=== PATIENT | male | born 1965 | race Caucasian/White ===

== ENCOUNTER → 2016-06-26 | Outpatient (CLI) | payer BC ==
[2016-06-26 15:14] LABS: CHLORIDE,CL 104 mmol/L (98-110); SODIUM,NA 138 mmol/L (136-146)
== END ==
LOC: MW.CHIM 14:36
PROVIDERS: ATTEND Internal Medicine
DX: E11.9 Type 2 diabetes mellitus without complications (principal); I10 Essential (primary) hypertension; E78.00 Pure hypercholesterolemia, unspecified
CPT/HCPCS: 36415; 80053; 82150; 83036

== ENCOUNTER 2018-07-14 08:46 | Day surgery (SDC) | payer BC ==
[~2018-07-14 08:46] MED LIST: Midazolam 1 MG/ML 2 ML SDV ONE; Propofol 200 MG/20 ML SDV ONE; fentaNYL 100 MCG/2 ML SDV ONE
[2018-07-14] MEDS: Lactated Ringers 1,000 ML IV SCH ×2 (09:20→11:01)
--- NOTE | 2018-07-14 09:35 | PCM.PREANE ---
Preanesthetic Assessment - Anesthesia/Transfusion/Family Hx Anesthesia History: Prior Anesthesia Without Reaction Family History of Anesthesia Reaction: No Transfusion History: No Prior Transfusion(s) - Review of Systems General: No Symptoms Pulmonary: No Symptoms Cardiovascular: No Symptoms Neurological: No Symptoms Other: Reports: None - Physical Assessment NPO Status Date: 07/13/18 Height: 5 ft 7 in Weight: 71.668 kg ASA Class: 2 Mental Status: Alert & Oriented x3 Airway Class: Mallampati = 1 Dentition: Reports: Missing Tooth/Teeth ROM/Head Extension: Full Lungs: Clear to Auscultation, Normal Respiratory Effort Cardiovascular: Regular Rate, Regular Rhythm - Lab Values: Laboratory Last Values POC Glucose 130 mg/dL (60-110) H 07/14/18 09:26 - Allergies Allergies/Adverse Reactions: Allergies Allergy/AdvReac Type Severity Reaction Status Date / Time No Known Allergies Allergy Verified 07/09/18 10:31 - Blood Blood Available: No - Anesthesia Plan Pre-Op Medication Ordered: None - Acknowledgements Anesthesia Type Planned: General Anesthesia Pt an Appropriate Candidate for the Planned Anesthesia: Yes Alternatives and Risks of Anesthesia Discussed w Pt/Guardian: Yes Pt/Guardian Understands and Agrees with Anesthesia Plan: Yes Additional Comments: PMH: gerd. 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, partial right nephrectomy for removal of benign mass Musculoskeletal History: Reports: Other (See Below) Other Musculoskeletal History: tawnya shoulder pain Neurological History: Reports: None Psychiatric History: Reports: None Endocrine/Metabolic History: Reports: Diabetes, Type II Hematologic History: Reports: None Immunologic History: Reports: None Oncologic (Cancer) History: Reports: None Dermatologic History: Reports: None - Past Surgical History Head Surgeries/Procedures: Reports: None HEENT Surgical History: Reports: Naso-Sinus Surgery GI Surgical History: Reports: EGD, Hernia, Inguinal Male Surgical History: Reports: Other (See Below) Other Male Surgeries/Procedures: partial right nephrectomy for excision of benign mass Endocrine Surgical History: Reports: None Neurological Surgical History: Reports: None Oncologic Surgical History: Reports: None Dermatological Surgical History: Reports: None - SUBSTANCE USE Smoking Status *Q: Current Every Day Smoker Tobacco Use Within Last Twelve Months: Cigarettes Recreational Drug Use History: No - HOME MEDS Home Medications: Home Meds Cyclobenzaprine HCl 10 mg PO BEDTIME PRN 07/09/18 [History] Empagliflozin [Jardiance] 25 mg PO DAILY 07/09/18 [History] Liraglutide [Victoza] 1.8 mg SUBCUT DAILY 07/09/18 [History] Lisinopril 10 mg PO DAILY 07/09/18 [History] Multivits-Minerals/FA/Lycopene [One-A-Day Men's Tablet] 1 tab PO DAILY 07/09/18 [History] Omeprazole 40 mg PO BID 07/09/18 [History] Simvastatin [Zocor] 40 mg PO DAILY 07/09/18 [History] Vitamin B Complex/Folic Acid [Super B Maxi Complex Caplet] 1 tab PO DAILY [History] metFORMIN HCl [Metformin HCl] 1,000 mg PO BIDMEALS 07/09/18 [History] traMADol HCl [Tramadol HCl] 50 mg PO ASDIRECTED PRN 07/09/18 [History] - CURRENT (IN HOUSE) MEDS Current Meds: Current Medications Lactated Ringer's (Ringers, Lactated) 1,000 mls @ 125 mls/hr IV ASDIRECTED LUCINA Discontinued Medications Fentanyl (Sublimaze) Confirm Administered Dose 100 mcg .ROUTE .STK-MED ONE Stop: 07/14/18 07:35 Midazolam HCl (Versed 1 Mg/Ml) Confirm Administered Dose 2 mg .ROUTE .STK-MED ONE Stop: 07/14/18 07:35 Propofol (Diprivan 20 Ml) Confirm Administered Dose 200 mg .ROUTE .STK-MED ONE Stop: 07/14/18 07:35
--- NOTE | 2018-07-14 12:52 | PCM.OPNOTE ---
- General Post-Op/Procedure Note Date of Surgery/Procedure: 07/14/18 Operative Procedure(s): Esophagogastroduodenoscopy with gastric and esophageal biopsies Pre Op Diagnosis: Progressive heartburn. Spicy food intolerance. Post-Op Diagnosis: Chronic gastritis. Distal esophagitis. Anesthesia Technique: MAC (ASA II) Primary Surgeon: Jame Chavez Free Text/Narrative:: DICTATION 129770 CPT CODE 96862
[2018-07-14] MEDS ORDERED: Lactated Ringers 1,000 ML IV SCH (13:00)
--- NOTE | 2018-07-14 13:21 | PCM.POSTAN ---
POST ANESTHESIA ASSESSMENT - MENTAL STATUS Mental Status: Alert, Oriented - RESPIRATORY Respiratory Status: Respiratory Rate WNL, Airway Patent, O2 Saturation Stable - CARDIOVASCULAR CV Status: Pulse Rate WNL, Blood Pressure Stable - GASTROINTESTINAL GI Status: No Symptoms - POST OP HYDRATION Hydration Status: Adequate & Stable
--- NOTE | 2018-07-14 13:21 | PCM48HPAN ---
Post Anesthesia Note - EVALUATION WITHIN 48HRS OF ANESTHETIC Vital Signs in Normal Range: Yes Patient Participated in Evaluation: Yes Respiratory Function Stable: Yes Airway Patent: Yes Cardiovascular Function Stable: Yes Hydration Status Stable: Yes Pain Control Satisfactory: Yes Nausea and Vomiting Control Satisfactory: Yes Mental Status Recovered: Yes Resp Rate: 14
--- NOTE | 2018-07-15 09:37 | OR ---
SURGEON: Jame Chavez M.D. DATE OF PROCEDURE: 07/14/2018 PROCEDURE PERFORMED: Esophagogastroduodenoscopy with gastric and esophageal biopsies. ANESTHESIA: MAC. ASA CLASSIFICATION: II PREOPERATIVE DIAGNOSIS: Progressive heartburn. POSTOPERATIVE DIAGNOSES: 1. [id number] chronic gastritis. 2. Distal esophagitis. 3. Small hiatal hernia. DESCRIPTION OF PROCEDURE: The patient was taken to the endoscopy room and positioned on the endoscopy table in the supine position. Time-out was called for appropriate identification of the patient and procedure. Monitored anesthesia care was provided. The bite block was placed between the patient's teeth. The gastroscope was inserted through the bite block and advanced with minimal difficulty through the esophagus and stomach into the duodenum where examination was now carried out in a retrograde fashion. The duodenum shows no acute inflammatory changes or ulcerations. Stomach does show [id number] chronic appearing gastritis. Antral biopsies were obtained to look for the presence of Helicobacter pylori. The gastroscope was retroflexed to visualize the proximal stomach. No ulcerations are noted proximally. No tumor masses are noted. The patient does have a small hiatal hernia. The gastroscope was then withdrawn through the GE junction, which does show some acute inflammatory changes. Biopsies of the distal esophagus were taken at 38 cm. This was approximately 2 to 3 cm above the esophageal hiatus. The esophagus itself demonstrates poor contractility with tertiary contractions. I did not see any significant longitudinal stripping waves. The vocal cords were briefly visualized as the scope was withdrawn and noted to move symmetrically. No vocal cord lesions were identified and there did not appear to be any acute inflammatory changes. The gastroscope was then removed with the patient having tolerated the procedure well. He was taken to recovery room in stable condition. GERMAN / SAM /[id number]
== END 2018-07-14 13:40 | disposition home or self-care (01) ==
LOC: MW.SDS 08:46
PROVIDERS: ATTEND Surgery
DX: K21.9 Gastro-esophageal reflux disease without esophagitis (principal); K20.9 Esophagitis, unspecified; K29.50 Unspecified chronic gastritis without bleeding; K44.9 Diaphragmatic hernia without obstruction or gangrene; I10 Essential (primary) hypertension; E11.9 Type 2 diabetes mellitus without complications; F17.210 Nicotine dependence, cigarettes, uncomplicated; E78.00 Pure hypercholesterolemia, unspecified; Z79.84 Long term (current) use of oral hypoglycemic drugs; Z79.899 Other long term (current) drug therapy
CPT/HCPCS: 43239; 82962; 88305; 88312; J2250; J2704; J3010; J7120; 00731

== ENCOUNTER 2018-10-26 13:14 | Emergency (ER) | payer BC ==
[2018-10-26] MEDS ORDERED: Sodium Chloride 0.9% 10 ML Syringe FLUSH PRN (13:38)
[2018-10-26] MEDS ORDERED: Sodium Chloride 0.9% 2.5 ML Syringe FLUSH PRN (13:38)
--- NOTE | 2018-10-26 13:38 | EDM.PDOC ---
ED HPI GENERAL MEDICAL PROBLEM - General Chief Complaint: Abdominal Pain Stated Complaint: PAIN IN KIDNEY AND GROIN Time Seen by Provider: 10/26/18 13:38 Source of Information: Reports: Patient History Limitations: Reports: No Limitations - History of Present Illness INITIAL COMMENTS - FREE TEXT/NARRATIVE: HISTORY AND PHYSICAL: History of present illness: Patient is a 53-year-old male presents to the ED with complaint of abdominal pain. He states he started having pain in his right flank and right groin x 5 days. He states the pain in his flank is constant but the groin pain is worse with standing. He has had some nausea but denies any vomiting, diarrhea, dysuria , hematuria, fevers, or chills. He states he had a partial nephrectomy on the right due to a benign lesion and notes history of right sided hernia repair. Past medical history significant for diabetes, hypertension, and GERD. 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 Review of systems: As per history of present illness and below otherwise all systems reviewed and negative. Past medical history: As per history of present illness and as reviewed below otherwise noncontributory. Surgical history: As per history of present illness and as reviewed below otherwise noncontributory. Social history: No reported history of drug or alcohol abuse. Family history: As per history of present illness and as reviewed below otherwise noncontributory. Physical exam: General: Patient sitting comfortably in no acute distress and nontoxic appearing HEENT: Atraumatic, normocephalic, pupils reactive, negative for conjunctival pallor or scleral icterus, mucous membranes moist, throat clear, neck supple, nontender, trachea midline. No meningeal signs. Lungs: Clear to auscultation, breath sounds equal bilaterally, chest nontender. Heart: S1S2, regular, negative for clicks, rubs, or overt murmur. Abdomen: Right lower quadrant tenderness to palpation. No defects noted. Soft, nondistended. Negative for masses or hepatosplenomegaly. Negative for costovertebral tenderness. No rigidity, rebound, guarding. Pelvis: Stable nontender. Genitourinary: Deferred. Rectal: Deferred. Extremities: Atraumatic, negative for cords or calf pain. Neurovascular unremarkable. Neuro: Awake, alert, oriented. Cranial nerves II through XII unremarkable. Cerebellum unremarkable. Motor and sensory unremarkable throughout. Exam nonfocal. Notes: Patient informed of CT results and advised to follow up with PCP. Diagnostics: CBC, CMP, UA, CT abdomen Therapeutics: None Prescriptions: None Impression: Abdominal pain Plan: 1. Take medication as instructed 2. Follow up with primary care provider 3. Return to ED as needed as discussed Definitive disposition and diagnosis as appropriate pending reevaluation and review of above. Right Groin Pain Score (Numeric/FACES): 8 - Related Data Allergies Allergy/AdvReac Type Severity Reaction Status Date / Time No Known Allergies Allergy Verified 10/26/18 13:33 Home Meds: Home Meds Cyclobenzaprine HCl 10 mg PO BEDTIME PRN 07/09/18 [History] Empagliflozin [Jardiance] 25 mg PO DAILY 07/09/18 [History] Lisinopril 10 mg PO DAILY 07/09/18 [History] Multivits-Minerals/FA/Lycopene [One-A-Day Men's Tablet] 1 tab PO DAILY 07/09/18 [History] Omeprazole 40 mg PO BID 07/09/18 [History] Simvastatin [Zocor] 40 mg PO DAILY 07/09/18 [History] Vitamin B Complex/Folic Acid [Super B Maxi Complex Caplet] 1 tab PO DAILY [History] metFORMIN HCl [Metformin HCl] 1,000 mg PO BIDMEALS 07/09/18 [History] traMADol HCl [Tramadol HCl] 50 mg PO ASDIRECTED PRN 07/09/18 [History] Glimepiride [Amaryl] 2 mg PO DAILY 10/26/18 [History] Semaglutide [Ozempic] 0.5 ml SQ WEEKLY 10/26/18 [History] Past Medical History HEENT History: Reports: Other (See Below) Other HEENT History: wears glasses only for distance, top partial, rt hearing aid Cardiovascular History: Reports: High Cholesterol, Hypertension Respiratory History: Reports: None Gastrointestinal History: Reports: GERD Other Genitourinary History: 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, partial right nephrectomy for removal of benign mass Musculoskeletal History: Reports: Other (See Below) Other Musculoskeletal History: tawnya shoulder pain Neurological History: Reports: None Psychiatric History: Reports: None Endocrine/Metabolic History: Reports: Diabetes, Type II Hematologic History: Reports: None Immunologic History: Reports: None Oncologic (Cancer) History: Reports: None Dermatologic History: Reports: None - Past Surgical History Head Surgeries/Procedures: Reports: None HEENT Surgical History: Reports: Naso-Sinus Surgery GI Surgical History: Reports: EGD, Hernia, Inguinal Male Surgical History: Reports: Other (See Below) Other Male Surgeries/Procedures: partial right nephrectomy for excision of benign mass Endocrine Surgical History: Reports: None Neurological Surgical History: Reports: None Oncologic Surgical History: Reports: None Dermatological Surgical History: Reports: None ED ROS GENERAL - Review of Systems Review Of Systems: ROS reveals no pertinent complaints other than HPI. ED EXAM, RENAL/ - Physical Exam Exam: See Below (see dictation) Course - Vital Signs Last Recorded V/S: Last Vital Signs Temp 97.9 F 10/26/18 13:27 Pulse 102 H 10/26/18 13:27 Resp 18 10/26/18 13:27 BP 119/80 10/26/18 13:27 Pulse Ox 99 10/26/18 13:27 - Orders/Labs/Meds Orders: Active Orders 24 hr Category Date Time Status Sodium Chloride 0.9% [Saline Flush] Med 10/26/18 13:38 Active 10 ml FLUSH ASDIRECTED PRN Sodium Chloride 0.9% [Saline Flush] Med 10/26/18 13:38 Active 2.5 ml FLUSH ASDIRECTED PRN Saline Lock Insert [OM.PC] Stat Oth 10/26/18 13:37 Ordered Medication Orders Sodium Chloride (Saline Flush) 10 ml FLUSH ASDIRECTED PRN PRN Reason: Keep Vein Open Last Admin: 10/26/18 14:49 Dose: 10 ml Sodium Chloride (Saline Flush) 2.5 ml FLUSH ASDIRECTED PRN PRN Reason: Keep Vein Open Last Admin: 10/26/18 14:49 Dose: 2.5 ml Labs: Laboratory Tests 10/26/18 10/26/18 10/26/18 Range/Units 13:48 13:48 14:18 WBC 12.96 H (4.0-11.0) K/uL RBC 4.68 (4.50-5.90) M/uL Hgb 14.5 (13.0-17.0) g/dL Hct 42.6 (38.0-50.0) % MCV 91.0 (80.0-98.0) fL MCH 31.0 (27.0-32.0) pg MCHC 34.0 (31.0-37.0) g/dL RDW Std Deviation 44.7 (28.0-62.0) fl RDW Coeff of Lalita 14 (11.0-15.0) % Plt Count 319 (150-400) K/uL MPV 10.10 (7.40-12.00) fL Neut % (Auto) 75.8 (48.0-80.0) % Lymph % (Auto) 17.6 (16.0-40.0) % [place] % (Auto) 5.2 (0.0-15.0) % Eos % (Auto) 1.1 (0.0-7.0) % Baso % (Auto) 0.3 (0.0-1.5) % Neut # (Auto) 9.8 H (1.4-5.7) K/uL Lymph # (Auto) 2.3 (0.6-2.4) K/uL [place] # (Auto) 0.7 (0.0-0.8) K/uL Eos # (Auto) 0.1 (0.0-0.7) K/uL Baso # (Auto) 0.0 (0.0-0.1) K/uL Nucleated RBC % 0.0 /100WBC Nucleated RBCs # 0 K/uL Sodium 140 (136-148) mmol/L Potassium 3.8 (3.5-5.1) mmol/L Chloride 104 (98-107) mmol/L Carbon Dioxide 25.2 (21.0-32.0) mmol/L BUN 11 (7.0-18.0) mg/dL Creatinine 0.8 (0.8-1.3) mg/dL Est Cr Clr Drug Dosing TNP Estimated GFR (MDRD) > 60.0 ml/min Glucose 106 (74-106) mg/dL Calcium 9.0 (8.5-10.1) mg/dL Total Bilirubin 0.3 (0.2-1.0) mg/dL AST 10 L (15-37) IU/L ALT 22 (14-63) IU/L Alkaline Phosphatase 118 H (46-116) U/L Total Protein 7.2 (6.4-8.2) g/dL Albumin 3.8 (3.4-5.0) g/dL Globulin 3.4 (2.6-4.0) g/dL Albumin/Globulin Ratio 1.1 (0.9-1.6) Urine Color YELLOW Urine Appearance CLEAR Urine pH 5.5 (5.0-8.0) Ur Specific [place] <= 1.005 (1.001-1.035) Urine Protein NEGATIVE (NEGATIVE) mg/dL Urine Glucose (UA) >=1000 (NEGATIVE) mg/dL Urine Ketones NEGATIVE (NEGATIVE) mg/dL Urine Occult Blood NEGATIVE (NEGATIVE) Urine Nitrite NEGATIVE (NEGATIVE) Urine Bilirubin NEGATIVE (NEGATIVE) Urine Urobilinogen 0.2 (<2.0) EU/dL Ur Leukocyte Esterase NEGATIVE (NEGATIVE) Meds: Medications Generic Name Dose Route Start Last Admin Trade Name Freq PRN Reason Stop Dose Admin Sodium Chloride 10 ml 10/26/18 13:38 10/26/18 14:49 Saline Flush FLUSH 10 ml ASDIRECTED PRN Administration Keep Vein Open Sodium Chloride 2.5 ml 10/26/18 13:38 10/26/18 14:49 Saline Flush FLUSH 2.5 ml ASDIRECTED PRN Administration Keep Vein Open Discontinued Medications Generic Name Dose Route Start Last Admin Trade Name Freq PRN Reason Stop Dose Admin Iopamidol 100 ml 10/26/18 14:53 10/26/18 14:54 Isovue Multipack-370 (76%) IVPUSH 10/26/18 14:54 100 ml ONETIME STA Administration Departure - Departure Time of Disposition: 13:48 Disposition: Home, Self-Care 01 Condition: Good Clinical Impression: Abdominal pain Clinical Impression: (Ruled Out): Penile lesion - Discharge Information Referrals: PCP,Unknown [Primary Care Provider] - Forms: ED Department Discharge Additional Instructions: The following information is given to patients seen in the emergency department who are being discharged to home. This information is to outline your options for follow-up care. We provide all patients seen in our emergency department with a follow-up referral. The need for follow-up, as well as the timing and circumstances, are variable depending upon the specifics of your emergency department visit. If you don't have a primary care physician on staff, we will provide you with a referral. We always advise you to contact your personal physician following an emergency department visit to inform them of the circumstance of the visit and for follow-up with them and/or the need for any referrals to a consulting specialist. The emergency department will also refer you to a specialist when appropriate. This referral assures that you have the opportunity for follow-up care with a specialist. All of these measure are taken in an effort to provide you with optimal care, which includes your follow-up. Under all circumstances we always encourage you to contact your private physician who remains a resource for coordinating your care. When calling for follow-up care, please make the office aware that this follow-up is from your recent emergency room visit. If for any reason you are refused follow-up, please contact the [facility] Emergency Department at and asked to speak to the emergency department charge nurse. [facility] [address] [place] [id number] [place] [address] 1. Follow up with primary are provider 2. Return to ED As needed as discussed - My Orders Last 24 Hours: My Active Orders 10/26/18 13:37 Saline Lock Insert [OM.PC] Stat 10/26/18 13:38 Sodium Chloride 0.9% [Saline Flush] 10 ml FLUSH ASDIRECTED PRN Sodium Chloride 0.9% [Saline Flush] 2.5 ml FLUSH ASDIRECTED PRN - Assessment/Plan Last 24 Hours: My Active Orders 10/26/18 13:37 Saline Lock Insert [OM.PC] Stat 10/26/18 13:38 Sodium Chloride 0.9% [Saline Flush] 10 ml FLUSH ASDIRECTED PRN Sodium Chloride 0.9% [Saline Flush] 2.5 ml FLUSH ASDIRECTED PRN
[2018-10-26 14:16] LABS: CHLORIDE,CL 104 mmol/L (98-107); SODIUM,NA 140 mmol/L (136-148)
[2018-10-26] MEDS ORDERED: Iopamidol 755 MG/ML 500 ML Multipack Bottle IVPUSH STA (14:53)
--- NOTE | 2018-10-26 15:35 | CT ---
HISTORY: Right flank pain radiating to right groin. History right partial nephrectomy mass removed in 2010. Right hernia repair. Contrast-enhanced CT abdomen and pelvis. Coronal sagittal reformatted images obtained. Comparison : No comparison studies are available. FINDINGS: Heart size is normal. Basilar atelectasis. No effusion. Focal fat adjacent to falciform ligament. Low-density lesion in the right hepatic lobe nonspecific. Spleen pancreas appears unremarkable. 1.6 cm right adrenal lesion. Left adrenal gland is unremarkable. Gallbladder is unremarkable. Atherosclerotic calcification of the abdominal aorta nonaneurysmal. Presumed postsurgical surgical changes of a partial right nephrectomy in the right superior kidney. Bilateral too small to characterize low-density lesions in both kidneys. There is no hydronephrosis. Exophytic 4.4 x 2 cm mass in the left superior containing fat most likely would represent an angiomyolipoma. Diverticulosis. Normal appendix. Bowel is unremarkable. No inflammatory change. The urinary bladder is unremarkable. Prostate gland is slightly prominent. Prior right inguinal hernia postsurgical change. No recurrent hernia. No suspicious bony lesions are seen. Impression : 1. No acute findings in the abdomen or pelvis. No renal calculi or hydronephrosis. 2. Exophytic 4.4 x 2 centimeter mass off the left superior kidney containing fat which most likely would reflect an angiomyolipoma. 3. 1.6 centimeter right adrenal lesion incompletely assessed. Further characterization could be performed with dedicated adrenal protocol. Please note that all CT scans at this facility use dose modulation, iterative reconstruction, and/or weight-based dosing when appropriate to reduce radiation dose to as low as reasonably achievable. Dictated by Anum Ornelas MD @ Oct 27 2018 5:16PM Signed by Dr. Anum Ornelas @ Oct 28 2018 6:36AM
== END 2018-10-26 15:56 | disposition home or self-care (01) ==
LOC: MW.ED 13:14
DX: R10.9 Unspecified abdominal pain (principal); I10 Essential (primary) hypertension; E11.9 Type 2 diabetes mellitus without complications; E78.00 Pure hypercholesterolemia, unspecified; K21.9 Gastro-esophageal reflux disease without esophagitis; Z79.899 Other long term (current) drug therapy; Z79.84 Long term (current) use of oral hypoglycemic drugs
CPT/HCPCS: 36415; 74177; 80053; 81003; 85025; 99284; Q9967; 99283

== ENCOUNTER 2019-10-09 09:10 | Day surgery (SDC) | payer OTHER, BC ==
[~2019-10-09 09:10] MED LIST changes: +Lactated Ringers 1,000 ML IV SCH; +Lidocaine 2% 5 ML SDV ONE; -Midazolam 1 MG/ML 2 ML SDV ONE; +Sodium Chloride 0.9% 10 ML SDV IV PRN; +Sodium Chloride 0.9% 10 ML Syringe FLUSH PRN; +Sodium Chloride 0.9% 2.5 ML Syringe FLUSH PRN
--- NOTE | 2019-10-09 09:42 | PCM.PREANE ---
Preanesthetic Assessment - Anesthesia/Transfusion/Family Hx Anesthesia History: Prior Anesthesia Without Reaction Family History of Anesthesia Reaction: No Transfusion History: No Prior Transfusion(s) Intubation History: Unknown - Review of Systems General: No Symptoms Pulmonary: No Symptoms Cardiovascular: No Symptoms Gastrointestinal: Other (h/o diverticulitis) Neurological: No Symptoms Other: Reports: None - Physical Assessment Vital Signs: Last Vital Signs Temp 36.2 C 10/09/19 09:20 Pulse 116 H 10/09/19 09:20 Resp 16 10/09/19 09:20 BP 118/79 10/09/19 09:20 Pulse Ox 98 10/09/19 09:20 Height: 5 ft 7 in Weight: 69.853 kg ASA Class: 3 Mental Status: Alert & Oriented x3 Airway Class: Mallampati = 2 Dentition: Reports: Normal Dentition, Partial (lower) Thyro-Mental Finger Breadths: 3 Mouth Opening Finger Breadths: 3 ROM/Head Extension: Full Lungs: Clear to Auscultation, Normal Respiratory Effort Cardiovascular: Regular Rate, Regular Rhythm - Allergies Allergies/Adverse Reactions: Allergies Allergy/AdvReac Type Severity Reaction Status Date / Time No Known Allergies Allergy Verified 10/05/19 09:30 - Blood Blood Available: No - Anesthesia Plan Pre-Op Medication Ordered: None - Acknowledgements Anesthesia Type Planned: MAC Pt an Appropriate Candidate for the Planned Anesthesia: Yes Alternatives and Risks of Anesthesia Discussed w Pt/Guardian: Yes Pt/Guardian Understands and Agrees with Anesthesia Plan: Yes PreAnesthesia Questionnaire HEENT History: Reports: Other (See Below) Other HEENT History: wears glasses only for distance, top partial, rt hearing aid Cardiovascular History: Reports: High Cholesterol, Hypertension Respiratory History: Reports: None Gastrointestinal History: Reports: GERD, Hiatal Hernia, Other (See Below) Other Gastrointestinal History: hx diverticulitis '04, chronic gastritis Other Genitourinary History: 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, partial right nephrectomy for removal of benign mass Musculoskeletal History: Reports: Osteoarthritis Neurological History: Reports: None Psychiatric History: Reports: None Endocrine/Metabolic History: Reports: Diabetes, Type II (last A1c 7.8 (received steroids at that time)) Hematologic History: Reports: None Immunologic History: Reports: None Oncologic (Cancer) History: Reports: None Dermatologic History: Reports: None - Infectious Disease History Infectious Disease History: Reports: Chicken Pox - Past Surgical History Head Surgeries/Procedures: Reports: None HEENT Surgical History: Reports: Naso-Sinus Surgery Cardiovascular Surgical History: Reports: None Respiratory Surgical History: Reports: None GI Surgical History: Reports: Colonoscopy, EGD, Hernia, Inguinal Male Surgical History: Reports: Other (See Below) Other Male Surgeries/Procedures: partial right nephrectomy for excision of benign mass Endocrine Surgical History: Reports: None Neurological Surgical History: Reports: None Musculoskeletal Surgical History: Reports: None Oncologic Surgical History: Reports: None Dermatological Surgical History: Reports: None - SUBSTANCE USE Smoking Status *Q: Current Every Day Smoker Tobacco Use Within Last Twelve Months: Cigarettes - HOME MEDS Home Medications: Home Meds Cyclobenzaprine HCl 10 mg PO BEDTIME PRN 07/09/18 [History] Empagliflozin [Jardiance] 25 mg PO DAILY 07/09/18 [History] Lisinopril 10 mg PO DAILY 07/09/18 [History] Multivit-Min/Folic/Vit K/Lycop [One-A-Day Men's Tablet] 1 tab PO DAILY 07/09/18 [History] Omeprazole 40 mg PO BID 07/09/18 [History] Simvastatin [Zocor] 40 mg PO DAILY 07/09/18 [History] metFORMIN HCl [Metformin HCl] 1,000 mg PO BIDMEALS 07/09/18 [History] traMADol HCl [Tramadol HCl] 50 mg PO ASDIRECTED PRN 07/09/18 [History] Glimepiride [Amaryl] 2 mg PO DAILY 10/26/18 [History] Folic Acid/Vit B Complex and C [Super B Complex Tablet] 1 tab PO DAILY 10/05/19 [History] Liraglutide [Victoza] 1.8 units SUBCUT DAILY 10/05/19 [History] Tadalafil [Cialis] 20 mg PO ASDIRECTED PRN 10/05/19 [History] - CURRENT (IN HOUSE) MEDS Current Meds: Current Medications Lactated Ringer's (Ringers, Lactated) 1,000 mls @ 125 mls/hr IV ASDIRECTED LUCINA Last Admin: 10/09/19 09:32 Dose: 125 mls/hr Documented by: Sodium Chloride (Saline Flush) 10 ml FLUSH ASDIRECTED PRN PRN Reason: Keep Vein Open Sodium Chloride (Saline Flush) 2.5 ml FLUSH ASDIRECTED PRN PRN Reason: Keep Vein Open Sodium Chloride (Saline Flush) 10 ml FLUSH ASDIRECTED PRN PRN Reason: Keep Vein Open Sodium Chloride (Saline Flush) 2.5 ml FLUSH ASDIRECTED PRN PRN Reason: Keep Vein Open Sodium Chloride (Normal Saline) 10 ml IV ASDIRECTED PRN PRN Reason: IV Use Discontinued Medications Fentanyl (Sublimaze) Confirm Administered Dose 100 mcg .ROUTE .STK-MED ONE Stop: 10/09/19 07:09 Lidocaine (Xylocaine-Mpf 2%) Confirm Administered Dose 5 ml .ROUTE .STK-MED ONE Stop: 10/09/19 07:08 Propofol (Diprivan 20 Ml) Confirm Administered Dose 400 mg .ROUTE .STK-MED ONE Stop: 10/09/19 07:09
--- NOTE | 2019-10-09 11:26 | PCM.OPNOTE ---
- General Post-Op/Procedure Note Date of Surgery/Procedure: 10/09/19 Operative Procedure(s): Screening colonoscopy with polypectomy Findings: 1) Grade IV hemorrhoids 2) Diverticulosis 3) transverse colon polyp 4) descending colon polyp 5) sigmoid colon polyp Pre Op Diagnosis: Screening colonoscopy Post-Op Diagnosis: 1) Grade IV hemorrhoids. 2) Diverticulosis. 3) transverse colon polyp. 4) descending colon polyp. 5) sigmoid colon polyp [place] [facility] [place]geon: Kell Rossi Condition: Stable Free Text/Narrative:: Intake & Output 10/08/19 10/09/19 10/09/19 22:59 06:59 14:59 Intake Total 950 Balance 950
--- NOTE | 2019-10-09 12:56 | PCM.POSTAN ---
POST ANESTHESIA ASSESSMENT - MENTAL STATUS Mental Status: Alert, Oriented - VITAL SIGNS Vital Signs: Last Vital Signs Temp 36.2 C 10/09/19 10:39 Pulse 90 10/09/19 10:39 Resp 14 10/09/19 10:39 BP 100/66 10/09/19 10:39 Pulse Ox 92 L 10/09/19 10:39 - RESPIRATORY Respiratory Status: Respiratory Rate WNL, Airway Patent, O2 Saturation Stable - CARDIOVASCULAR CV Status: Pulse Rate WNL, Blood Pressure Stable - GASTROINTESTINAL GI Status: No Symptoms - PAIN Pain Score: 0 - POST OP HYDRATION Hydration Status: Adequate & Stable - OBSERVATIONS Free Text/Narrative:: No anesthesia problems
--- NOTE | 2019-10-09 12:59 | PCM48HPAN ---
Post Anesthesia Note - EVALUATION WITHIN 48HRS OF ANESTHETIC Vital Signs in Normal Range: Yes Patient Participated in Evaluation: Yes Respiratory Function Stable: Yes Airway Patent: Yes Cardiovascular Function Stable: Yes Hydration Status Stable: Yes Pain Control Satisfactory: Yes Nausea and Vomiting Control Satisfactory: Yes Mental Status Recovered: Yes Vital Signs: Last Vital Signs Temp 36.2 C 10/09/19 10:39 Pulse 90 10/09/19 10:39 Resp 14 10/09/19 10:39 BP 100/66 10/09/19 10:39 Pulse Ox 92 L 10/09/19 10:39 - COMMENTS/OBSERVATIONS Free Text/Narrative:: No anesthesia problems
--- NOTE | 2019-10-11 21:00 | OR ---
SURGEON: KELL ROSSI MD DATE OF PROCEDURE: 10/09/2019 PREOPERATIVE DIAGNOSIS: Screening colonoscopy. POSTOPERATIVE DIAGNOSES: 1. Grade 4 hemorrhoids. 2. Diverticulosis. 3. Transverse colon polyp. 4. Descending colon polyp. 5. Sigmoid colon polyp. PROCEDURE PERFORMED: Screening colonoscopy with polypectomy. PRIMARY SURGEON: Kell Rossi M.D. ANESTHESIA: MAC. INSTRUMENT USED: Olympus colonoscope. EXTENT OF THE EXAM: To the cecum. PREPARATION: Good. LIMITATIONS: None. INDICATIONS FOR EXAMINATION: The patient is a 54-year-old male who presents to my clinic for screening colonoscopy. The patient and I discussed the procedure, expected perioperative course, and the risks including bleeding, infection, or damage to surrounding structures including perforation. He verbalized understanding and wishes to proceed. PROCEDURE IN DETAIL: The patient was brought into the endoscopy suite and placed in the left lateral decubitus position. A time-out was completed verifying the patient's name, age, date of , allergies, and procedure to be performed. Monitored anesthesia care was induced and continuous oxygen was provided via nasal cannula throughout the procedure. After adequate sedation was achieved, a digital rectal exam was performed. This revealed grade 4 hemorrhoids. A well-lubricated colonoscope was inserted in the rectum and advanced under direct visualization to the level of the cecum. The cecum was then identified by both visual and anatomic landmarks. A photograph was taken at the cecal cap, however, I was unable to retroflex the scope within the cecum due to looping of the scope more proximally. The scope was then fully withdrawn while examining the color, texture, anatomy, and integrity of mucosa from the cecum to the anal canal. The patient was noted to have diverticulosis of the colon. In the transverse, descending, and sigmoid colon, the patient was noted to have flat sessile polyps. These were removed in piecemeal fashion using a cold biopsy forceps. Scope was then brought into the rectum and retroflexed to allow visualization of the anal canal opening. This appeared normal and photograph was taken. The scope was then straightened out and fully withdrawn. The cecum to anus time was 14 minutes. The patient tolerated the procedure well and was transferred to the PACU in stable condition. ENDOSCOPIC DIAGNOSES: 1. Grade 4 hemorrhoids. 2. Diverticulosis. 3. Transverse colon polyp. 4. Descending colon polyp. 5. Sigmoid colon polyp. RECOMMENDATIONS: Follow up in clinic in 2 weeks. ALYSE / EFRAINL /[id number]
== END 2019-10-09 11:00 | disposition home or self-care (01) ==
LOC: MW.SDS 09:10
PROVIDERS: ATTEND Surgery
DX: Z12.11 Encounter for screening for malignant neoplasm of colon (principal); D12.3 Benign neoplasm of transverse colon; D12.4 Benign neoplasm of descending colon; K64.3 Fourth degree hemorrhoids; K57.30 Diverticulosis of large intestine without perforation or abscess without bleeding; K21.9 Gastro-esophageal reflux disease without esophagitis; E78.5 Hyperlipidemia, unspecified; I10 Essential (primary) hypertension; E78.00 Pure hypercholesterolemia, unspecified; F17.210 Nicotine dependence, cigarettes, uncomplicated; E11.9 Type 2 diabetes mellitus without complications; Z79.84 Long term (current) use of oral hypoglycemic drugs; Z79.899 Other long term (current) drug therapy; Z98.890 Other specified postprocedural states
CPT/HCPCS: 45380; J2001; J2704; J3010; J7120; 00812; 88305

== ENCOUNTER 2020-05-24 08:36 | Emergency (ER) | payer OTHER, BC ==
[2020-05-24] MEDS ORDERED: Ketorolac 15 MG/ML SDV IM ONE (09:10)
--- NOTE | 2020-05-24 09:46 | CR ---
INDICATION: Right hip Pain TECHNIQUE: Single view pelvis with AP and Frogleg views right hip COMPARISONS: None available. FINDINGS: Femoral heads are well-seated in the acetabula. There is no displaced fracture, dislocation or acute osseous abnormality. There is minimal axial loss of joint space and marginal osteophyte formation. The soft tissues are unremarkable. IMPRESSION: Mild degenerative changes of the right hip without evidence of acute osseous abnormality. Dictated by Jose Guadalupe Palomo MD @ May 24 2020 9:45AM Signed by Dr. Jose Guadalupe Palomo @ May 24 2020 9:46AM
--- NOTE | 2020-05-24 10:01 | EDM.PDOC ---
ED HPI GENERAL MEDICAL PROBLEM - General Chief Complaint: Lower Extremity Injury/Pain Stated Complaint: RT HIP PAIN Time Seen by Provider: 05/24/20 08:48 - History of Present Illness INITIAL COMMENTS - FREE TEXT/NARRATIVE: CHIEF COMPLAINT(S): Hip pain HISTORY OF PRESENT ILLNESS: This is a 55-year-old man with a past medical history of diabetes mellitus, hyperlipidemia, hypertension who comes to the emergency department with a chief complaint of hip pain. The patient states that yesterday after getting up from bed he noticed that his right hip was hurting. He states that the pain is rated a 6 out of 10 without any radiation. He denies any numbness, tingling, or weakness. He describes the pain as achy. He states the pain is constant but intermittently gets worse when he moves it. He denies any injuries or falls. States that he does have history of arthritis but never in his hips. He denies any bowel incontinence, urinary incontinence or back pain. He denies any overlying rash. He denies any relieving symptoms. REVIEW OF SYSTEMS: Constitutional: Denies fever, chills. Eyes: Denies eye pain Ears, Nose, Mouth, & Throat: Denies earache Cardiovascular: Denies chest pain Respiratory: Denies shortness of breath Gastrointestinal: Denies Nausea,, bowel incontinence vomiting, diarrhea, hematochezia. Genitourinary: Denies hematuria, urinary incontinence Skin:Denies a rash MSK: Positive for right hip pain Neurological: Denies blurred vision, numbness, tingling, weakness Psychiatric: Denies depression PAST MEDICAL HISTORY: As per history of present illness and as reviewed below otherwise noncontributory. SURGICAL HISTORY: As per history of present illness and as reviewed below otherwise noncontributory. SOCIAL HISTORY: As per history of present illness and as reviewed below otherwise noncontributory. FAMILY HISTORY: As per history of present illness and as reviewed below otherwise noncontributory. EXAMINATION OF ORGAN SYSTEMS/BODY AREAS: Constitutional: Blood pressure was 115/76, heart rate 112, respiratory rate 17 with an oxygen saturation 97% on room air. Temperature 36.3 General: Middle-aged gentleman who does not appear to be in any acute distress. Psychiatric: Appropriate mood and affect. Eyes: No scleral icterus or conjunctival erythema ENMT: Moist mucous membranes. No pharyngeal erythema Cardiovascular: Regular, rate, and rhythm. No gallops, murmurs, or rubs. Bilateral upper extremity and lower extremity pulses symmetric and intact. No peripheral edema. No JVD. Respiratory: Lungs clear to auscultation bilaterally. No wheezes, rales, or rhonchi. Gastrointestinal: Soft, non-tender, non-distended. Normoactive bowel sounds Genitourinary: No suprapubic tenderness Musculoskeletal: Normal range of motion. There is tenderness to palpation along the right hip and right lateral thigh. There are no overlying skin changes. The patient is able to bear weight and has normal gait. Skin: No lesions or abrasions. Neurological: Alert, GCS 15 strength and sensation in upper and lower extremities grossly intact. MEDICAL DECISION MAKING AND COURSE IN THE ED WITH INTERPRETATION/REVIEW OF DIAGNOSTIC STUDIES: This is a 55-year-old man with a past medical history of diabetes mellitus who comes to the emergency department with right hip pain who has overall normal vital signs with tachycardia that has resolved while being in the emergency department. The patient has no red flag symptoms such as inability to bear weight, redness, warmth, swelling, or fever. We will obtain a right hip x-ray with pelvic x-ray to evaluate for any abnormality. I do believe this is likely secondary to osteoarthritis we will provide the patient with Toradol IM for pain relief. I do not believe any other labs or imaging are indicated. The radiological images were viewed by myself along with reading the report from the radiologist. Right hip with pelvis x-ray reveals mild degenerative changes of the right hip without evidence of acute osseous abnormality. After imaging I did discuss with the patient the results of his x-ray. I did discuss with him at this time he should use Tylenol and Motrin alternating for the next 2 days and that he can use Voltaren cream or lidocaine cream. I discussed the importance of continued use of the leg and hip and to apply ice to it 20 minutes 4 times a day. I also discussed that he should follow-up with his primary care physician or orthopedics regarding further management. He is to return for any new or worsening symptoms. He was amenable to discharge and had no further questions. The patient was provided with a 1 day work excuse. DISPOSITION: The patient was discharged home in stable condition. The patient will follow up with primary care physician or orthopedics at his leisure CONDITION: Fair PROCEDURES: None FINAL IMPRESSION(S)/DIAGNOSES: 1. Acute right hip pain likely secondary to arthritis Nolan Benítez M.D. right hip Pain Score (Numeric/FACES): 9 - Related Data Allergies Allergy/AdvReac Type Severity Reaction Status Date / Time No Known Allergies Allergy Verified 05/24/20 08:50 Home Meds: Home Meds Cyclobenzaprine HCl 10 mg PO BEDTIME PRN 07/09/18 [History] Empagliflozin [Jardiance] 25 mg PO DAILY 07/09/18 [History] Lisinopril 10 mg PO DAILY 07/09/18 [History] Multivit-Min/Folic/Vit K/Lycop [One-A-Day Men's Tablet] 1 tab PO DAILY 07/09/18 [History] Omeprazole 40 mg PO BID 07/09/18 [History] Simvastatin [Zocor] 40 mg PO DAILY 07/09/18 [History] metFORMIN HCl [Metformin HCl] 1,000 mg PO BIDMEALS 07/09/18 [History] traMADol HCl [Tramadol HCl] 50 mg PO ASDIRECTED PRN 07/09/18 [History] Folic Acid/Vit B Complex and C [Super B Complex Tablet] 1 tab PO DAILY 10/05/19 [History] Liraglutide [Victoza] 1.8 units SUBCUT DAILY 10/05/19 [History] glipiZIDE [Glipizide ER] 10 mg PO DAILY 05/24/20 [History] Past Medical History HEENT History: Reports: Other (See Below) Other HEENT History: wears glasses only for distance, top partial, rt hearing aid Cardiovascular History: Reports: High Cholesterol, Hypertension Respiratory History: Reports: None Gastrointestinal History: Reports: GERD, Other (See Below) Other Gastrointestinal History: hx diverticulitis '04, chronic gastritis Other Genitourinary History: 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, partial right nephrectomy for removal of benign mass Musculoskeletal History: Reports: Osteoarthritis Neurological History: Reports: None Psychiatric History: Reports: None Endocrine/Metabolic History: Reports: Diabetes, Type II Hematologic History: Reports: None Immunologic History: Reports: None Oncologic (Cancer) History: Reports: None Dermatologic History: Reports: None - Infectious Disease History Infectious Disease History: Reports: Chicken Pox - Past Surgical History Head Surgeries/Procedures: Reports: None HEENT Surgical History: Reports: Naso-Sinus Surgery Cardiovascular Surgical History: Reports: None Respiratory Surgical History: Reports: None GI Surgical History: Reports: Colonoscopy, EGD, Hernia, Inguinal Male Surgical History: Reports: Other (See Below) Other Male Surgeries/Procedures: partial right nephrectomy for excision of benign mass Endocrine Surgical History: Reports: None Neurological Surgical History: Reports: None Musculoskeletal Surgical History: Reports: None Oncologic Surgical History: Reports: None Dermatological Surgical History: Reports: None Social & Family History - Family History Family Medical History: No Pertinent Family History - Tobacco Use Tobacco Use Status *Q: Current Every Day Tobacco User Years of Tobacco use: 43 Packs/Tins Daily: 1 - Caffeine Use Caffeine Use: Reports: Coffee, Energy Drinks, Tea - Recreational Drug Use Recreational Drug Use: No Review of Systems - Review of Systems Review Of Systems: See Below ED EXAM, GENERAL - Physical Exam Exam: See Below Course - Vital Signs Last Recorded V/S: Last Vital Signs Temp 36.3 C 05/24/20 10:34 Pulse 68 05/24/20 10:34 Resp 18 05/24/20 10:34 BP 115/76 05/24/20 08:53 Pulse Ox 97 05/24/20 10:34 - Orders/Labs/Meds Meds: Medications Discontinued Medications Generic Name Dose Route Start Last Admin Trade Name Trungq PRN Reason Stop Dose Admin Ketorolac Tromethamine 15 mg 05/24/20 09:10 05/24/20 09:20 Toradol IM 05/24/20 09:11 15 mg ONETIME ONE Administration Departure - Departure Time of Disposition: 09:59 Disposition: Home, Self-Care 01 Condition: Fair Clinical Impression: Arthritis - Discharge Information *PRESCRIPTION DRUG MONITORING PROGRAM REVIEWED*: No *COPY OF PRESCRIPTION DRUG MONITORING REPORT IN PATIENT BONIFACIO: No Instructions: Hip Pain, Arthritis, [id number], Pain Medicine Instructions, [id number] Referrals: Paul Carl MD [Primary Care Provider] - Forms: ED Department Discharge Additional Instructions: You were evaluated today on an emergent basis. At this time your x-rays were normal but did reveal some mild osteoarthritis. I recommend continued use of ibuprofen 400 to 600 mg every 6 hours for the next 2 days and then use as needed after that. In addition you can use [id number] Voltaren cream or Lidoderm cream for symptomatic relief. Other conditions in this area that could cause pain is called iliotibial band syndrome. I do recommend the use of a foam roller in the morning in the evening as we discussed. If you have any new or worsening symptoms please return to the emergency department. Please keep your appointment with orthopedics. [facility] - [facility] [address] [place] [address] [facility] [address] [place] [address] [facility] Professional Building [address] [facility], [address] [place] [address] The patient is informed of any results of their evaluation and diagnostic workup and all questions are answered. They are given discharge instructions and return precautions. The patient is stable for discharge. The patient states they understand and agree with the plan and that they will return if their symptoms get worse or if they have any new concerns. The following information is given to patients seen in the emergency department who are being discharged to home. This information is to outline your options for follow-up care. We provide all patients seen in our emergency department with a follow-up referral. The need for follow-up, as well as the timing and circumstances, are variable depending upon the specifics of your emergency department visit. If you don't have a primary care physician on staff, we will provide you with a referral. We always advise you to contact your personal physician following an emergency department visit to inform them of the circumstance of the visit and for follow-up with them and/or the need for any referrals to a consulting specialist. The emergency department will also refer you to a specialist when appropriate. This referral assures that you have the opportunity for follow-up care with a specialist. All of these measure are taken in an effort to provide you with optimal care, which includes your follow-up. Under all circumstances we always encourage you to contact your private physician who remains a resource for coordinating your care. When calling for follow-up care, please make the office aware that this follow-up is from your recent emergency room visit. If for any reason you are refused follow-up, please contact the [facility] Emergency Department at and asked to speak to the emergency department charge nurse. Sepsis Event Note (ED) - Evaluation Sepsis Screening Result: No Definite Risk
== END 2020-05-24 10:34 | disposition home or self-care (01) ==
LOC: MW.ED 08:36
DX: M16.11 Unilateral primary osteoarthritis, right hip (principal); E11.9 Type 2 diabetes mellitus without complications; E78.5 Hyperlipidemia, unspecified; I10 Essential (primary) hypertension; K21.9 Gastro-esophageal reflux disease without esophagitis; Z79.84 Long term (current) use of oral hypoglycemic drugs; Z79.899 Other long term (current) drug therapy; Z72.0 Tobacco use
CPT/HCPCS: 73502; 96372; 99283; J1885

== ENCOUNTER 2021-02-25 06:51 | Emergency (ER) | payer BC ==
--- NOTE | 2021-02-25 07:44 | EDM.PDOC ---
ED HPI GENERAL MEDICAL PROBLEM - General Chief Complaint: Upper Extremity Injury/Pain Stated Complaint: FALL- HURT RIGHT HIP AND RIGHT SHOULDER Time Seen by Provider: 02/25/21 07:31 - History of Present Illness INITIAL COMMENTS - FREE TEXT/NARRATIVE: 56-year-old male with a history of diabetes history of torn rotator cuffs and bilateral shoulders which he gets regular steroid injections for presents with right shoulder and right hip pain after fall. Patient slipped on the ice and fell down some steps he did not strike his head he did not lose consciousness he was able to ambulate after the fall. He was able to drive himself here. He reports pain in the right hip that worsens with ambulation as well as pain in the right shoulder that worsens with range of motion. He is sustained an abrasion to the left forearm and a contusion to the left abarca but denies pain in either of these sites. No neck pain no back pain no chest or abdominal pain no difficulty breathing. ROS: Neck: No neck stiffness. Respiratory: No shortness of breath. Cardiac: No chest pain. Gastrointestinal: No nausea, vomiting or abdominal pain. Musculoskeletal: Per HPI Neurologic: No headache. R shoulder Pain Score (Numeric/FACES): 10 - Related Data Allergies Allergy/AdvReac Type Severity Reaction Status Date / Time No Known Allergies Allergy Verified 02/25/21 07:31 Home Meds: Home Meds Cyclobenzaprine HCl 10 mg PO BEDTIME PRN 07/09/18 [History] Empagliflozin [Jardiance] 25 mg PO DAILY 07/09/18 [History] Lisinopril 10 mg PO DAILY 07/09/18 [History] Multivit-Min/Folic/Vit K/Lycop [One-A-Day Men's Tablet] 1 tab PO DAILY 07/09/18 [History] Omeprazole 40 mg PO BID 07/09/18 [History] Simvastatin [Zocor] 40 mg PO DAILY 07/09/18 [History] metFORMIN HCl [Metformin HCl] 1,000 mg PO BIDMEALS 07/09/18 [History] traMADol HCl [Tramadol HCl] 50 mg PO ASDIRECTED PRN 07/09/18 [History] Folic Acid/Vit B Complex and C [Super B Complex Tablet] 1 tab PO DAILY 10/05/19 [History] Liraglutide [Victoza] 1.8 units SUBCUT DAILY 10/05/19 [History] glipiZIDE [Glipizide ER] 10 mg PO DAILY 05/24/20 [History] Hydrocodone/Acetaminophen [HYDROcodone-Acetaminophen 5-325 MG] 1 each PO TID PRN 4 Days #12 tab 02/25/21 [Rx] Past Medical History HEENT History: Reports: Other (See Below) Other HEENT History: wears glasses only for distance, top partial, rt hearing aid Cardiovascular History: Reports: High Cholesterol, Hypertension Respiratory History: Reports: None Gastrointestinal History: Reports: GERD, Other (See Below) Other Gastrointestinal History: hx diverticulitis '04, chronic gastritis Other Genitourinary History: 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, partial right nephrectomy for removal of benign mass Musculoskeletal History: Reports: Osteoarthritis Neurological History: Reports: None Psychiatric History: Reports: None Endocrine/Metabolic History: Reports: Diabetes, Type II Hematologic History: Reports: None Immunologic History: Reports: None Oncologic (Cancer) History: Reports: None Dermatologic History: Reports: None - Infectious Disease History Infectious Disease History: Reports: Chicken Pox - Past Surgical History Head Surgeries/Procedures: Reports: None HEENT Surgical History: Reports: Naso-Sinus Surgery Cardiovascular Surgical History: Reports: None Respiratory Surgical History: Reports: None GI Surgical History: Reports: Colonoscopy, EGD, Hernia, Inguinal Male Surgical History: Reports: Other (See Below) Other Male Surgeries/Procedures: partial right nephrectomy for excision of benign mass Endocrine Surgical History: Reports: None Neurological Surgical History: Reports: None Musculoskeletal Surgical History: Reports: None Oncologic Surgical History: Reports: None Dermatological Surgical History: Reports: None Social & Family History - Family History Family Medical History: No Pertinent Family History - Caffeine Use Caffeine Use: Reports: Coffee, Energy Drinks, Tea Review of Systems - Review of Systems Review Of Systems: See Below ED EXAM, GENERAL - Physical Exam Exam: See Below Free Text/Narrative:: General Appearance: No acute distress, appears comfortable Skin: No rash HEENT: Normocephalic/atraumatic, sclera anicteric, mucous membranes moist Neck: Normal range of motion Chest and Lungs: Normal work of breathing Cardiovascular: Intact distal perfusion Abdomen: Soft, non-tender Musculoskeletal: Abrasion to the left forearm is without active bleeding retained foreign body underlying swelling or tenderness, contusion to the left anterior abarca but no skin violation no underlying bony tenderness, focal tenderness over the ASIS and the greater trochanter of the right hip mildly antalgic gait on ambulation focal tenderness over the right mid deltoid no focal tenderness swelling or deformity in the right elbow or the right hand or wrist Neurologic: Awake, alert, no obvious deficits, moving all extremities Psychiatric: Appropriate, cooperative Course - Vital Signs Last Recorded V/S: Last Vital Signs Temp 97.5 F 02/25/21 07:32 Pulse 106 H 02/25/21 07:32 Resp 18 02/25/21 07:32 BP 116/75 02/25/21 07:32 Pulse Ox 97 02/25/21 07:32 - Orders/Labs/Meds Orders: Active Orders 24 hr Category Date Time Status Hip Min 2V or 3V w Pelvis Rt [CR] Stat Exams 02/25/21 07:40 Taken Shoulder Comp Rt [CR] Stat Exams 02/25/21 07:40 Taken Departure - Departure Time of Disposition: 08:23 Disposition: Home, Self-Care 01 Condition: Good Clinical Impression: Contusion, hip, Shoulder contusion - Discharge Information *PRESCRIPTION DRUG MONITORING PROGRAM REVIEWED*: Yes *COPY OF PRESCRIPTION DRUG MONITORING REPORT IN PATIENT BONIFACIO: No Prescriptions: Hydrocodone/Acetaminophen [HYDROcodone-Acetaminophen 5-325 MG] 1 each PO TID PRN 4 Days #12 tab PRN Reason: Pain Instructions: Shoulder Pain, [id number] Referrals: PCP,None [Primary Care Provider] - Forms: ED Department Discharge Additional Instructions: Your x-rays today showed no signs of any broken bones. I suspect the impact likely aggravated your pre-existing right shoulder problems and that you bruised your right hip. Your symptoms should improve over the next few days. A prescription for medication was sent to [facility]. Please be sure not to combine this medication with the tramadol or with any alcohol. I encourage you to follow-up with your primary care doctor if you do not have a primary care doctor you can follow-up at one of the clinics listed below. [facility] - [facility] [address] [place] [id number] [id number] The following information is given to patients seen in the emergency department who are being discharged to home. This information is to outline your options for follow-up care. We provide all patients seen in our emergency department with a follow-up referral. The need for follow-up, as well as the timing and circumstances, are variable depending upon the specifics of your emergency department visit. If you don't have a primary care physician on staff, we will provide you with a referral. We always advise you to contact your personal physician following an emergency department visit to inform them of the circumstance of the visit and for follow-up with them and/or the need for any referrals to a consulting specialist. The emergency department will also refer you to a specialist when appropriate. This referral assures that you have the opportunity for follow-up care with a specialist. All of these measure are taken in an effort to provide you with optimal care, which includes your follow-up. Under all circumstances we always encourage you to contact your private physician who remains a resource for coordinating your care. When calling for follow-up care, please make the office aware that this follow-up is from your recent emergency room visit. If for any reason you are refused follow-up, please contact the [facility] Department at and asked to speak to the emergency department charge nurse. Sepsis Event Note (ED) - Evaluation Sepsis Screening Result: No Definite Risk - Focused Exam Vital Signs: Vital Signs Temp Pulse Resp BP Pulse Ox 02/25/21 07:32 97.5 F 106 H 18 116/75 97 - My Orders Last 24 Hours: My Active Orders 02/25/21 07:40 Hip Min 2V or 3V w Pelvis Rt [CR] Stat Shoulder Comp Rt [CR] Stat - Assessment/Plan Last 24 Hours: My Active Orders 02/25/21 07:40 Hip Min 2V or 3V w Pelvis Rt [CR] Stat Shoulder Comp Rt [CR] Stat Assessment:: 56-year-old male status post fall as described above primary survey intact secondary survey negative except findings as noted above. X-ray of the right shoulder and the right hip ordered no other imaging indicated. Patient drove h imself here declines ibuprofen consider short [place] prescription if needed. I believe he can clinically clear the head spine chest, pelvis and other extremities. 0825: X-rays negative on my preliminary interpretation. Patient felt stable for discharge. Return precautions discussed and understood. Patient is already off work untill next Saturday.
--- NOTE | 2021-02-25 08:34 | CR ---
INDICATION: Hip pain. TECHNIQUE: AP radiograph of the pelvis, two views of the right hip. COMPARISON: 05/24/2020. FINDINGS: Bones: Alignment is normal. No fractures or bone lesions. Joint spaces: Unremarkable. Soft tissues: Unremarkable. IMPRESSION: There is no acute fracture or malalignment identified in the pelvis or proximal femora. Dictated by Jorge L Yarbrough MD @ 02/25/2021 8:33:04 AM (Electronically Signed)
--- NOTE | 2021-02-25 08:36 | CR ---
HISTORY: Fall. Shoulder pain. COMPARISON: 01/03/2021. TECHNIQUE: Right shoulder, 4 views. Findings: Tiny calcifications adjacent to the right greater tuberosity are stable. The AC and CC intervals are normal. There is no displaced rib fracture. There is no pneumothorax. No dislocation on the transscapular Y-view. Impression: No acute fracture or malalignment of the right glenohumeral joint. Dictated by Jorge L Yarbrough MD @ 02/25/2021 8:35:43 AM (Electronically Signed)
== END 2021-02-25 08:32 | disposition home or self-care (01) ==
LOC: MW.ED 06:51
DX: S40.011A Contusion of right shoulder, initial encounter (principal); S70.01XA Contusion of right hip, initial encounter; S50.812A Abrasion of left forearm, initial encounter; E78.00 Pure hypercholesterolemia, unspecified; I10 Essential (primary) hypertension; K21.9 Gastro-esophageal reflux disease without esophagitis; E11.9 Type 2 diabetes mellitus without complications; Z79.84 Long term (current) use of oral hypoglycemic drugs; Z79.899 Other long term (current) drug therapy; W00.1XXA Fall from stairs and steps due to ice and snow, initial encounter
CPT/HCPCS: 73030-26-RT; 73030-RT; 73502-26-RT; 73502-RT; 99283